=== PATIENT | female | born 1965 | race Caucasian/White ===

== ENCOUNTER 2023-02-25 04:34 | Emergency (ER) | payer OTHER ==
[2023-02-25 04:37] VITALS: BP 145/85; PULSE 85; RESP 18; TEMP 97.6; BMI 34.5
[2023-02-25] MEDS ORDERED: LIDOCAINE HCL 1%, 10 MG/ML (50 mL VIAL) SQ ONE (05:48)
[2023-02-25] MEDS ORDERED: LIDOCAINE HCL 2% (20ML MULTI-DOSE VIAL) ONE (05:49)
[2023-02-25] MEDS ORDERED: DIPHTH,PERTUSS(ACELL),TET 0.5 ML DISP.SYRIN IM ONE ×2 (06:34→06:52)
== END 2023-02-25 07:02 | disposition home or self-care (01) ==
LOC: JER 04:34
PROC: 0HQ0XZZ Repair Scalp Skin, External Approach (ICD-10-PCS; principal; 2023-02-25)
PROC: 3E0234Z Introduction of Serum, Toxoid and Vaccine into Muscle, Percutaneous Approach (ICD-10-PCS; 2023-02-25)
DX: S01.01XA Laceration without foreign body of scalp, initial encounter (principal); W01.198A Fall on same level from slipping, tripping and stumbling with subsequent striking against other object, initial encounter
CPT/HCPCS: 12002-25; 70450-TC; 72125-TC; 90471; 90715; 99284-25

== ENCOUNTER 2023-03-18 12:04 | Emergency (ER) | payer OTHER ==
[2023-03-18 12:35] VITALS: BP 112/50; PULSE 55; RESP 16; TEMP 97.7; BMI 36.8
== END 2023-03-18 12:59 | disposition home or self-care (01) ==
LOC: JERFT 12:04
DX: S01.01XA Laceration without foreign body of scalp, initial encounter (principal); Y99.9 Unspecified external cause status; Z48.02 Encounter for removal of sutures
CPT/HCPCS: 99281-25